=== PATIENT | male | born 1985 | race Caucasian/White ===

== ENCOUNTER 2017-09-06 09:47 | Day surgery (SDC) | payer OTHER ==
[~2017-09-06 09:47] MED LIST: Lactated Ringers 1,000 ML IV SCH
--- NOTE | 2017-09-06 10:35 | PCM.PREANE ---
Preanesthetic Assessment - Anesthesia/Transfusion/Family Hx Anesthesia History: Prior Anesthesia Without Reaction Family History of Anesthesia Reaction: No Transfusion History: No Prior Transfusion(s) - Review of Systems General: No Symptoms Pulmonary: No Symptoms Cardiovascular: No Symptoms Gastrointestinal: No Symptoms Neurological: No Symptoms Other: Reports: None - Physical Assessment NPO Status Date: 09/05/17 O2 Sat by Pulse Oximetry: 98 Respiratory Rate: 16 Vital Signs: Last Vital Signs Temp 36.1 C 09/06/17 10:00 Pulse 78 09/06/17 10:00 Resp 16 09/06/17 10:00 BP 128/85 09/06/17 10:00 Pulse Ox 98 09/06/17 10:00 Height: 1.88 m Weight: 122.924 kg ASA Class: 2 Mental Status: Alert & Oriented x3 Airway Class: Mallampati = 2 Dentition: Reports: Normal Dentition ROM/Head Extension: Full Lungs: Clear to Auscultation, Normal Respiratory Effort Cardiovascular: Regular Rate, Regular Rhythm - Allergies Allergies/Adverse Reactions: Allergies Allergy/AdvReac Type Severity Reaction Status Date / Time Penicillins Allergy Cannot Verified 09/01/17 08:24 Remember - Anesthesia Plan Pre-Op Medication Ordered: None - Acknowledgements Anesthesia Type Planned: MAC Pt an Appropriate Candidate for the Planned Anesthesia: Yes Alternatives and Risks of Anesthesia Discussed w Pt/Guardian: Yes Pt/Guardian Understands and Agrees with Anesthesia Plan: Yes Additional Comments: PMH: smoker, hx of asthma (now inactive x 7 years) PreAnesthesia Questionnaire - Past Health History Medical/Surgical History: Denies Medical/Surgical History Respiratory History: Reports: Asthma Other Respiratory History: asthmatic bronchitis in highschool Endocrine/Metabolic History: Reports: Obesity/BMI 30+ - Infectious Disease History Infectious Disease History: Reports: Chicken Pox - Past Surgical History Head Surgeries/Procedures: Reports: None HEENT Surgical History: Reports: Oral Surgery - SUBSTANCE USE Smoking Status *Q: Current Every Day Smoker Recreational Drug Use History: No - HOME MEDS Home Medications: Home Meds . [No Known Home Meds] 11/14/16 [History] - CURRENT (IN HOUSE) MEDS Current Meds: Current Medications Lactated Ringer's (Ringers, Lactated) 1,000 mls @ 125 mls/hr IV ASDIRECTED [facility] Last Admin: 09/06/17 10:23 Dose: 125 mls/hr
[2017-09-06] MEDS ORDERED: Lidocaine 2% 5 ML SDV ONE (11:50)
[2017-09-06] MEDS ORDERED: Propofol 200 MG/20 ML SDV ONE (11:50)
[2017-09-06] MEDS ORDERED: Midazolam 1 MG/ML 2 ML SDV ONE (12:03)
--- NOTE | 2017-09-06 12:30 | PCM.OPNOTE ---
- General Post-Op/Procedure Note Date of Surgery/Procedure: 09/06/17 Operative Procedure(s): colonoscopy Findings: see dict [id number] Pre Op Diagnosis: scrn colonoscopy Post-Op Diagnosis: Same Anesthesia Technique: Moderate Sedation Primary Surgeon: Ridge Oden Complications: None Condition: Good
--- NOTE | 2017-09-06 13:18 | OR ---
SURGEON: Ridge Oden MD DATE OF PROCEDURE: 09/06/2017 PREOPERATIVE DIAGNOSIS: Screening colonoscopy. POSTOPERATIVE DIAGNOSIS: Screening colonoscopy. PROCEDURE IN DETAIL: Colonoscopy. FINDINGS: 1. The patient is easily sedated with DIFFUSION FURNACE OPERATOR and Diprivan. The patient is soundly snoring. 2. Colon was rather straight forward. Cecum indicated by ileocecal fold, one- to-one indentation, and light immittance is not observed and appendiceal orifice is not observed. Mucosa examined upon scope pulling out. The patient does not have diverticulosis, mass, growth, polyp, inflammation, stricture, ulceration, bleeding, or AV malformation, none of those. The patient does not have external hemorrhoids, has mild internal hemorrhoids. The patient would benefit from a repeat colonoscopy in 3 years from today as the patient has strong family history or if clinically indicated otherwise. DESCRIPTION OF PROCEDURE: The patient was taken to the endoscopy room. A time out was called, patient identified, and procedure identified. Diprivan was then administrated. Patient went from awake to sleep, hearing doctor talking or door closing is normal. Perineum inspection and digital examination were then performed. A well- lubricated colonoscope was gently inserted through the rectum, advanced past the rectosigmoid junction, the descending colon, splenic flexure, transverse colon, hepatic flexure, ascending colon, arrived to the cecum. Cecum was identified as dictated in the finding. Then the scope was carefully withdrawn while attention was paid to the mucosal surface for any abnormality. Air will be sucked out during the scope withdrawal. At the rectum, retroflexed to examine any rectal diseases, fistula or hemorrhoids. The patient tolerated procedure well. There were no intraoperative complications, and Dr. Oden was present throughout the whole procedure. As always, thank you for the kind referral. PRIMARY SURGEON: SECONDARY SURGEON: COLOR PASTE MIXING SUPERVISOR: REASON COLOR PASTE MIXING SUPERVISOR WAS NECESSARY: ROLE OF COLOR PASTE MIXING SUPERVISOR: ERIS / LINDA /[id number]
[2017-09-06 13:25] VITALS: BP 120/62
--- NOTE | 2017-09-06 13:35 | PCM.POSTAN ---
POST ANESTHESIA ASSESSMENT - MENTAL STATUS Mental Status: Alert, Oriented - RESPIRATORY Respiratory Status: Respiratory Rate WNL, Airway Patent, O2 Saturation Stable - CARDIOVASCULAR CV Status: Pulse Rate WNL, Blood Pressure Stable - GASTROINTESTINAL GI Status: No Symptoms - POST OP HYDRATION Hydration Status: Adequate & Stable
--- NOTE | 2017-09-06 13:35 | PCM48HPAN ---
Post Anesthesia Note - EVALUATION WITHIN 48HRS OF ANESTHETIC Vital Signs in Normal Range: Yes Patient Participated in Evaluation: Yes Respiratory Function Stable: Yes Airway Patent: Yes Cardiovascular Function Stable: Yes Hydration Status Stable: Yes Pain Control Satisfactory: Yes Nausea and Vomiting Control Satisfactory: Yes Mental Status Recovered: Yes
== END 2017-09-06 13:26 | disposition home or self-care (01) ==
LOC: MW.SDS 09:47
PROVIDERS: ATTEND Surgery
DX: Z12.11 Encounter for screening for malignant neoplasm of colon (principal); K64.8 Other hemorrhoids; F17.210 Nicotine dependence, cigarettes, uncomplicated; E66.9 Obesity, unspecified; Z68.34 Body mass index [BMI] 34.0-34.9, adult; Z88.0 Allergy status to penicillin; Z98.890 Other specified postprocedural states; Z80.0 Family history of malignant neoplasm of digestive organs; Z82.49 Family history of ischemic heart disease and other diseases of the circulatory system
CPT/HCPCS: 45378; J2250; J7120; 00810; J2704

== ENCOUNTER 2017-12-01 06:50 | Emergency (ER) | payer OTHER ==
[2017-12-01] MEDS ORDERED: Ketorolac 60 MG/2 ML SDV IM ONE (07:16)
[2017-12-01] MEDS ORDERED: Acetaminophen/HYDROcodone 325-7.5 MG Tab PO ONE (07:16)
--- NOTE | 2017-12-01 07:28 | EDM.PDOC ---
ED HPI GENERAL MEDICAL PROBLEM - General Chief Complaint: General Stated Complaint: CYST ON BOTTOM BURST Time Seen by Provider: 12/01/17 06:58 - History of Present Illness INITIAL COMMENTS - FREE TEXT/NARRATIVE: HISTORY AND PHYSICAL: History of present illness: The patient is a 31-year-old male who presents with a one-month history of a bump/small cyst to his right buttock cheek who says that over the last 5 days it has worsened in pain and swelling and this morning when he went to go to the bathroom he noticed some drainage. Patient's never had a history of this before and has had no systemic complaints other than some nasal congestion from a cold. He has no abdominal pain no anal pain and no issues with bowel or bladder. He's been having normal bowel movements albeit it has been discomforting due to the swelling in the area. Patient has not had any fever or vomiting. Patient has not manipulated the area. Patient was seen yesterday at [facility] and was placed on antibiotics, Bactrim, and he has taken 2 doses so far. He is only been using [id number] pain meds. He has a history of a screening colonoscopy performed by Dr. Oden 2-1/2 months ago. He did not contact him about this problem. The patient is most concerned about the discomfort. He received Toradol yesterday which she said worked very well Review of systems: As per history of present illness and below otherwise all systems reviewed and negative. Past medical history: As per history of present illness and as reviewed below otherwise noncontributory. Surgical history: As per history of present illness and as reviewed below otherwise noncontributory. Social history: No reported history of drug or alcohol abuse. Family history: As per history of present illness and as reviewed below otherwise noncontributory. Physical exam: Gen.: Well-developed well-nourished man is nontoxic and vital signs of noted by me HEENT: Atraumatic, normocephalic, negative for conjunctival pallor or scleral icterus, mucous membranes moist, throat clear, neck supple, nontender, trachea midline. Lungs: Clear to auscultation, breath sounds equal bilaterally, chest nontender. Heart: S1S2, regular rate and rhythm no overt murmurs Abdomen: Soft, nondistended, nontender. NABS. Pelvis: Stable nontender. Genitourinary: Deferred. Rectal: Perirectal sensation and rectal tone are intact and there is no gross fluctuance or masses appreciated on digital exam. In an area or between the perianal and coccyx area there is a 10 x 4 cm area of erythema and induration with tenderness appreciated at the right buttocks area. The area where there was drainage is visualized but there is no more drainage appreciated nor can I express any. There is no fluctuance or crepitance in the area. The area of this lesion is not consistent with pilonidal location nor perianal location and there is no extension to the perianal area or the perineum. The area of erythema and induration is very well demarcated and is quite tender on palpation. Extremities: Atraumatic, negative for cords or calf pain. Neurovascular unremarkable. Neuro: Awake, alert, oriented. Cranial nerves II through XII unremarkable. Cerebellum unremarkable. Motor and sensory unremarkable throughout. Exam nonfocal. Diagnostics: [] Therapeutics: Toradol [place] 0720: Case was discussed with Dr. Oden, as the patient has a relationship with him. He does not feel an ultrasound will be helpful as if there is no palpable fluctuance he would not be doing an incision and drainage. He would like to see the patient in his clinic on Tuesday and would like to change his antibiotic to clindamycin. I will give him pain medication for home as well as advise a stool softener. The patient is aware of this conversation and that he needs to call the clinic for follow-up on Tuesday. I've advised him on reasons to return. Impression: Buttocks abscess//cellulitis Definitive disposition and diagnosis as appropriate pending reevaluation and review of above. buttock Pain Score (Numeric/FACES): 8 - Related Data Allergies Allergy/AdvReac Type Severity Reaction Status Date / Time Penicillins Allergy Cannot Verified 09/01/17 08:24 Remember Home Meds: Home Meds Sulfamethoxazole/Trimethoprim [Bactrim Ds Tablet] 1 each PO 12/01/17 [History] Past Medical History - Past Health History Medical/Surgical History: Denies Medical/Surgical History Respiratory History: Reports: Asthma Other Respiratory History: asthmatic bronchitis in highschool Psychiatric History: Reports: None Endocrine/Metabolic History: Reports: Obesity/BMI 30+ - Infectious Disease History Infectious Disease History: Reports: Chicken Pox - Past Surgical History Head Surgeries/Procedures: Reports: None HEENT Surgical History: Reports: Oral Surgery Social & Family History - Family History Family Medical History: Noncontributory - Tobacco Use Smoking Status *Q: Current Every Day Smoker Years of Tobacco use: 15 Packs/Tins Daily: 0.5 - Caffeine Use Caffeine Use: Reports: Coffee - Recreational Drug Use Recreational Drug Use: No ED ROS GENERAL - Review of Systems Review Of Systems: ROS reveals no pertinent complaints other than HPI. ED EXAM, GENERAL - Physical Exam Exam: See Below (See dictation) Course - Vital Signs Last Recorded V/S: Last Vital Signs Temp 35.9 C 12/01/17 07:01 Pulse 94 12/01/17 07:01 Resp 16 12/01/17 07:01 BP 142/84 H 12/01/17 07:01 Pulse Ox 98 12/01/17 07:01 - Orders/Labs/Meds Orders: Active Orders 24 hr Category Date Time Status Acetaminophen/HYDROcodone [[place] 325-7.5 MG] Med 12/01/17 07:16 Once 1 tab PO ONETIME ONE Ketorolac [Toradol] Med 12/01/17 07:16 Once 60 mg IM ONETIME ONE Departure - Departure Time of Disposition: 07:28 Disposition: Home, Self-Care 01 Condition: Good Clinical Impression: Cellulitis and abscess of buttock - Discharge Information Referrals: Bob Fine MD [Primary Care Provider] - Additional Instructions: The following information is given to patients seen in the emergency department who are being discharged to home. This information is to outline your options for follow-up care. We provide all patients seen in our emergency department with a follow-up referral. The need for follow-up, as well as the timing and circumstances, are variable depending upon the specifics of your emergency department visit. If you don't have a primary care physician on staff, we will provide you with a referral. We always advise you to contact your personal physician following an emergency department visit to inform them of the circumstance of the visit and for follow-up with them and/or the need for any referrals to a consulting specialist. The emergency department will also refer you to a specialist when appropriate. This referral assures that you have the opportunity for followup care with a specialist. All of these measure are taken in an effort to provide you with optimal care, which includes your followup. Under all circumstances we always encourage you to contact your private physician who remains a resource for coordinating your care. When calling for followup care, please make the office aware that this follow-up is from your recent emergency room visit. If for any reason you are refused follow-up, please contact the [facility] emergency department at and ask to speak to the emergency department charge nurse. [facility] Specialty Care-General Surgery Professional Building [address] [place] [id number] Please stop the Bactrim you are taking and start clindamycin as prescribed. Please take an dabp-ecm-cnbtlju stool softener for the next 10 days to assist with bowel movements and please use hlij-dhe-[id number] medications for pain and add stronger pain medications you have been prescribed when needed. Please call Dr. Oden's clinic and speak to his nurse today to schedule an appointment with him on Tuesday per his direction. Return to ER as needed and as discussed and do symptomatic care for discomfort as we discussed. - My Orders Last 24 Hours: My Active Orders 12/01/17 07:16 Acetaminophen/HYDROcodone [[place] 325-7.5 MG] 1 tab PO ONETIME ONE Ketorolac [Toradol] 60 mg IM ONETIME ONE - Assessment/Plan Last 24 Hours: My Active Orders 12/01/17 07:16 Acetaminophen/HYDROcodone [[place] 325-7.5 MG] 1 tab PO ONETIME ONE Ketorolac [Toradol] 60 mg IM ONETIME ONE
[2017-12-01 08:49] VITALS: BP 146/83
== END 2017-12-01 07:50 | disposition home or self-care (01) ==
LOC: MW.ED 06:50
DX: L03.317 Cellulitis of buttock (principal); L02.31 Cutaneous abscess of buttock; F17.210 Nicotine dependence, cigarettes, uncomplicated; Z88.0 Allergy status to penicillin
CPT/HCPCS: 96372; 99283; A9270; J1885

== ENCOUNTER 2018-11-19 21:41 | Emergency (ER) | payer BC, OTHER ==
--- NOTE | 2018-11-19 22:01 | EDM.PDOC ---
ED HPI GENERAL MEDICAL PROBLEM - General Chief Complaint: Skin Complaint Stated Complaint: PT HAS BOILS Time Seen by Provider: 11/19/18 21:56 - History of Present Illness INITIAL COMMENTS - FREE TEXT/NARRATIVE: HISTORY AND PHYSICAL: History of present illness: Patient 32-year-old white male sensory concern of perianal cutaneous lesion that spontaneously ruptured tonight is similar episode about a year prior was seen by general surgery for this he had no fever chills nausea vomiting or other complaints Review of systems: As per history of present illness and below otherwise all systems reviewed and negative. Past medical history: As per history of present illness and as reviewed below otherwise noncontributory. Surgical history: As per history of present illness and as reviewed below otherwise noncontributory. Social history: No reported history of drug or alcohol abuse. Family history: As per history of present illness and as reviewed below otherwise noncontributory. Physical exam: HEENT: Atraumatic, normocephalic, pupils reactive, negative for conjunctival pallor or scleral icterus, mucous membranes moist, throat clear, neck supple, nontender, trachea midline. Lungs: Clear to auscultation, breath sounds equal bilaterally, chest nontender. Heart: S1S2, regular, negative for clicks, rubs, or JVD. Abdomen: Soft, nondistended, nontender. Negative for masses or hepatosplenomegaly. Negative for costovertebral tenderness. Pelvis: Stable nontender. Genitourinary: Deferred. Rectal: Patient has a perianal area minimal induration with a central area of recent rupture with no significant discharge is no fluctuance this is approximately 2 cm at 3 o'clock position and the perianal region. No significant tenderness to palpation Extremities: Atraumatic, negative for cords or calf pain. Neurovascular unremarkable. Neuro: Awake, alert, oriented. Cranial nerves II through XII unremarkable. Cerebellum unremarkable. Motor and sensory unremarkable throughout. Exam nonfocal. Diagnostics: Cutaneous culture CBC CMP CT pelvis with IV contrast Therapeutics: None Impression: #1 perianal cutaneous abscess with spontaneous rupture Definitive disposition and diagnosis as appropriate pending reevaluation and review of above. del-anal Pain Score (Numeric/FACES): 9 - Related Data Allergies Allergy/AdvReac Type Severity Reaction Status Date / Time Penicillins Allergy Cannot Verified 11/19/18 21:53 Remember Home Meds: Home Meds L.acidoph,Paracasei, B.lactis [Probiotic] 1 tab PO DAILY 11/19/18 [History] Multivitamin [Multivitamins] 1 tab PO DAILY 11/19/18 [History] Past Medical History - Past Health History Medical/Surgical History: Denies Medical/Surgical History Respiratory History: Reports: Asthma Other Respiratory History: asthmatic bronchitis in highschool Psychiatric History: Reports: None Endocrine/Metabolic History: Reports: Obesity/BMI 30+ - Infectious Disease History Infectious Disease History: Reports: Chicken Pox - Past Surgical History Head Surgeries/Procedures: Reports: None HEENT Surgical History: Reports: Oral Surgery Social & Family History - Family History Family Medical History: Noncontributory - Tobacco Use Smoking Status *Q: Current Every Day Smoker Years of Tobacco use: 15 Packs/Tins Daily: 1 - Caffeine Use Caffeine Use: Reports: Coffee - Recreational Drug Use Recreational Drug Use: No ED ROS GENERAL - Review of Systems Review Of Systems: ROS reveals no pertinent complaints other than HPI. ED EXAM, SKIN/RASH Exam: See Below (Indication) Course - Vital Signs Last Recorded V/S: Last Vital Signs Temp 36.1 C 11/19/18 21:41 Pulse 102 H 11/19/18 21:41 Resp 16 11/19/18 21:41 BP 140/80 11/19/18 21:41 Pulse Ox 94 L 11/19/18 21:41 - Orders/Labs/Meds Orders: Active Orders 24 hr Category Date Time Status Pelvis w Cont [CT] Stat Exams 11/19/18 21:58 Ordered CULTURE WOUND [RM] Stat Lab 11/19/18 22:00 Received Labs: Laboratory Tests 11/19/18 11/19/18 Range/Units 22:10 22:10 WBC 10.26 (4.0-11.0) K/uL RBC 4.81 (4.50-5.90) M/uL Hgb 15.1 (13.0-17.0) g/dL Hct 42.8 (38.0-50.0) % MCV 89.0 (80.0-98.0) fL MCH 31.4 (27.0-32.0) pg MCHC 35.3 (31.0-37.0) g/dL RDW Std Deviation 41.4 (28.0-62.0) fl RDW Coeff of Doug 13 (11.0-15.0) % Plt Count 192 (150-400) K/uL MPV 10.00 (7.40-12.00) fL Neut % (Auto) 55.5 (48.0-80.0) % Lymph % (Auto) 32.9 (16.0-40.0) % [place] % (Auto) 8.6 (0.0-15.0) % Eos % (Auto) 2.8 (0.0-7.0) % Baso % (Auto) 0.2 (0.0-1.5) % Neut # (Auto) 5.7 (1.4-5.7) K/uL Lymph # (Auto) 3.4 H (0.6-2.4) K/uL [place] # (Auto) 0.9 H (0.0-0.8) K/uL Eos # (Auto) 0.3 (0.0-0.7) K/uL Baso # (Auto) 0.0 (0.0-0.1) K/uL Nucleated RBC % 0.0 /100WBC Nucleated RBCs # 0 K/uL Sodium 138 (136-148) mmol/L Potassium 3.3 L (3.5-5.1) mmol/L Chloride 104 (98-107) mmol/L Carbon Dioxide 23.7 (21.0-32.0) mmol/L BUN 13 (7.0-18.0) mg/dL Creatinine 1.3 (0.8-1.3) mg/dL Est Cr Clr Drug Dosing 93.97 mL/min Estimated GFR (MDRD) > 60.0 ml/min Glucose 158 H (74-106) mg/dL Calcium 9.0 (8.5-10.1) mg/dL Total Bilirubin 0.3 (0.2-1.0) mg/dL AST 16 (15-37) IU/L ALT 40 (14-63) IU/L Alkaline Phosphatase 102 (46-116) U/L Total Protein 6.9 (6.4-8.2) g/dL Albumin 3.3 L (3.4-5.0) g/dL Globulin 3.6 (2.6-4.0) g/dL Albumin/Globulin Ratio 0.9 (0.9-1.6) Departure - Departure Time of Disposition: 22:59 Disposition: Home, Self-Care 01 Condition: Good Clinical Impression: Abscess - Discharge Information Referrals: PCP,None [Primary Care Provider] - Forms: ED Department Discharge Additional Instructions: The following information is given to patients seen in the emergency department who are being discharged to home. This information is to outline your options for follow-up care. We provide all patients seen in our emergency department with a follow-up referral. The need for follow-up, as well as the timing and circumstances, are variable depending upon the specifics of your emergency department visit. If you don't have a primary care physician on staff, we will provide you with a referral. We always advise you to contact your personal physician following an emergency department visit to inform them of the circumstance of the visit and for follow-up with them and/or the need for any referrals to a consulting specialist. The emergency department will also refer you to a specialist when appropriate. This referral assures that you have the opportunity for followup care with a specialist. All of these measure are taken in an effort to provide you with optimal care, which includes your followup. Under all circumstances we always encourage you to contact your private physician who remains a resource for coordinating your care. When calling for followup care, please make the office aware that this follow-up is from your recent emergency room visit. If for any reason you are refused follow-up, please contact the [facility] emergency department at and asked to speak to the emergency department charge nurse. [facility] Specialty Care - General Surgery Professional [address], [address] [place] [address] Follow-up 8 AM tomorrow clindamycin as prescribed sitz baths as directed return as needed as discussed - My Orders Last 24 Hours: My Active Orders 11/19/18 21:58 Pelvis w Cont [CT] Stat 11/19/18 22:00 CULTURE WOUND [RM] Stat - Assessment/Plan Last 24 Hours: My Active Orders 11/19/18 21:58 Pelvis w Cont [CT] Stat 11/19/18 22:00 CULTURE WOUND [RM] Stat
[2018-11-19 22:37] LABS: CHLORIDE,CL 104 mmol/L (98-107); SODIUM,NA 138 mmol/L (136-148)
[2018-11-19] MEDS ORDERED: Iopamidol 755 Mg/ML 100 ML Bottle IVPUSH ONE (23:31)
--- NOTE | 2018-11-19 23:45 | CT ---
INDICATION: Perirectal abscess, pelvic pain TECHNIQUE: CT pelvis with i.v. contrast. Coronal and sagittal reformats were obtained. CONTRAST: 100 mL Isovue 370 COMPARISON: None FINDINGS: Bone: No acute fractures or aggressive bone lesions are identified. Joint: The hip joint is unremarkable. No significant hip effusion is seen. The visualized sacroiliac joints are unremarkable in appearance. The pubic symphysis is normal in appearance. Soft tissue: Mild infiltration of the subcutaneous fat is seen along inferior right medial gluteal fold with no CT evidence of fluid collection identified. The visualized bowel gas pattern of the pelvis is unremarkable in appearance. No radiopaque foreign bodies are seen. IMPRESSION: 1. Mild infiltration of the subcutaneous fat is seen along inferior right medial gluteal fold with no CT evidence of fluid collection identified. Findings may be due to cellulitis and correlation with physical exam is recommended. Dictated by Ronen Apodaca MD @ 11/19/2018 11:43:38 PM Please note that all CT scans at this facility use dose modulation, iterative reconstruction, and/or weight-based dosing when appropriate to reduce radiation dose to as low as reasonably achievable. Dictated by: Ronen Apodaca MD @ 11/19/2018 23:43:41 (Electronically Signed)
[2018-11-19 23:46] VITALS: BP 144/66
== END 2018-11-20 00:01 | disposition home or self-care (01) ==
LOC: MW.ED 21:41
DX: K61.0 Anal abscess (principal); E66.9 Obesity, unspecified; F17.210 Nicotine dependence, cigarettes, uncomplicated; Z88.0 Allergy status to penicillin
CPT/HCPCS: 36415; 72193; 80053; 85025; 87070; 99284; Q9967; 99282

== ENCOUNTER 2024-02-04 03:36 | Emergency (ER) | payer OTHER ==
[2024-02-04] MEDS: Sodium Chloride 0.9% 10 ML Syringe FLUSH PRN (03:49)
[2024-02-04] MEDS: Sodium Chloride 0.9% 2.5 ML Syringe FLUSH PRN (03:49)
[2024-02-04 03:51] LABS: BASOPHILS ABSOLUTE AUTO 0.07 K/uL (0.00-0.20); BASOPHILS PERCENT AUTO 0.5 % (0.0-1.0); EOSINOPHILS ABSOLUTE AUTO 0.14 K/uL (0.00-0.45); HEMATOCRIT 45.7 % (42.0-52.0); HEMOGLOBIN 16.1 g/dL (14.0-18.0); IMMATURE GRAN ABSOLUTE AUTO 0.04 K/uL (0.00-0.05); IMMATURE GRAN PERCENT AUTO 0.3 % (0.0-0.4); LYMPHOCYTES ABSOLUTE AUTO 2.86 K/uL (1.00-4.80); LYMPHOCYTES PERCENT AUTO 20.9 % (24.0-44.0); MEAN CORPUSCULAR HEMOGLOBIN 30.8 pg (28.0-32.0); MEAN CORPUSCULAR HGB CONC 35.2 g/dL (32.0-36.0); MEAN CORPUSCULAR VOLUME 87.5 fL (83.0-99.0); MEAN PLATELET VOLUME 9.4 fL (9.4-12.4); MONOCYTES ABSOLUTE AUTO 1.15 K/uL (0.00-0.80); MONOCYTES PERCENT AUTO 8.4 % (0.0-8.0); NEUTROPHILS ABSOLUTE AUTO 9.41 K/uL (1.80-7.70); NEUTROPHILS PERCENT AUTO 68.9 % (41.0-71.0); PLATELET COUNT,PLT 211 K/uL (150-400); RED BLOOD CELL COUNT 5.22 M/uL (4.52-5.90); WHITE BLOOD CELL COUNT,WBC 13.67 K/uL (3.9-11.3)
[2024-02-04] MEDS: Ketorolac 30 MG/ML SDV IVPUSH ONE (04:09)
[2024-02-04] MEDS: Sodium Chloride 0.9% 1,000 ML IV STA (04:09)
[2024-02-04 04:13] LABS: ALBUMIN 3.7 g/dL (3.4-5.0); BILIRUBIN TOTAL 0.5 mg/dL (0.2-1.0); CALCIUM 8.6 mg/dL (8.5-10.1); CARBON DIOXIDE,CO2 23.2 mmol/L (21.0-32.0); CREATININE 1.2 mg/dL (0.8-1.3); EST CRCL DRUG DOSING (CG) 96.09 mL/min; POTASSIUM,K 3.7 mmol/L (3.5-5.1); PROTEIN TOTAL,TP 7.4 g/dL (6.4-8.2)
[2024-02-04] MEDS: metroNIDAZOLE 250 MG Tab PO ONE (04:35)
[2024-02-04] MEDS: Ciprofloxacin 500 MG Tab PO ONE (04:35)
[2024-02-04 05:01] LABS: APPEARANCE,URINE CLEAR; BILIRUBIN,URINE NEGATIVE (NEGATIVE); COLOR,URINE YELLOW; GLUCOSE,URINE NEGATIVE (NEGATIVE); KETONES,URINE NEGATIVE (NEGATIVE); LEUKOCYTE ESTERASE,URINE NEGATIVE (NEGATIVE); NITRITE,URINE NEGATIVE (NEGATIVE); OCCULT BLOOD,URINE NEGATIVE (NEGATIVE); PROTEIN,URINE NEGATIVE (NEGATIVE); UROBILINOGEN,URINE 0.2 EU/dL (<2.0)
[2024-02-04 07:07] VITALS: BP 127/72; PULSE 64
[2024-02-04] MEDS: Iopamidol 755 MG/ML 500 ML Multipack Bottle IVPUSH STA (07:46)
== END 2024-02-04 09:41 | disposition home or self-care (01) ==
LOC: MW.ED 03:36
DX: K57.32 Diverticulitis of large intestine without perforation or abscess without bleeding (principal); Z88.0 Allergy status to penicillin; Z79.899 Other long term (current) drug therapy; Z86.16 Personal history of COVID-19; Z75.8 Other problems related to medical facilities and other health care
CPT/HCPCS: 36415; 74177; 80053; 81003; 83690; 85025; 96374; 99284; A9270; J1885; J3490; J7030; Q9967